=== PATIENT | male | born 1960 | race Caucasian/White ===

== ENCOUNTER 2018-11-08 20:23 | Emergency (ER) | payer OTHER ==
[2018-11-08 20:36] VITALS: TEMP 99.6; BMI 28.8
--- NOTE | 2018-11-08 21:10 | PDOC ---
History of Present Illness - General Chief Complaint: Back Pain Stated Complaint: BACK PAIN Time Seen by Provider: 11/08/18 21:09 Past History - Past Medical History Allergies/Adverse Reactions: Allergies Allergy/AdvReac Type Severity Reaction Status Date / Time acetaminophen [From Percocet] Allergy Mild Unverified 11/08/18 22:23 oxycodone [From Percocet] Allergy Mild Unverified 11/08/18 22:23 Home Medications: Ambulatory Orders Gabapentin 2 cap PO TID 11/08/18 HYDROmorphone [Dilaudid -] 4 mg PO Q4H PRN 11/08/18 Metoclopramide HCl 5 mg PO TID 11/08/18 Tizanidine HCl 2 mg PO Q6H PRN 11/08/18 - Psycho Social/Smoking Cessation Hx Smoking Status: Yes Smoking History: Never smoked Have you smoked in the past 12 months: No Number of Cigarettes Smoked Daily: 20 Information on smoking cessation initiated: No 'Breaking Loose' booklet given: 05/07/13 Hx Alcohol Use: No Drug/Substance Use Hx: No *Physical Exam - Vital Signs Last Vital Signs Temp Pulse Resp BP Pulse Ox 99.6 F 105 H 20 164/91 99 11/08/18 20:34 11/08/18 20:34 11/08/18 20:34 11/08/18 20:34 11/08/18 20:34 ED Treatment Course - LABORATORY CBC & Chemistry Diagram: 11/08/18 22:00 11/08/18 22:00 Medical Decision Making - Medical Decision Making HPI: 58yo M with PMH of c-spine surgery presenting with neck pain. Patient states he had surgery on 09/06/18 following trauma sustained in May with residual weakness and lessened sensation on the left. He followed up with his surgeon about one and a half months ago. Patient states he attended physical therapy in the morning between 8am and 10pm. Starting in the afternoon, he started feeling worsening pain "inside" in his neck and chest and feels the area is "swelling". [place] nauseous, but not currently. He took two tablets of gabapentin without relief of pain. Denies trauma or fall today. No fevers or chills. History obtained with assistance from [employer] metal moulder's assistant #[id number] Surgeon: Dr. Car Manrique ROS: Constitutional: no fever, no chills HEENT: no throat pain, no dysphagia Cardiovascular: no chest pain, no palpitations Respiratory: no cough, no shortness of breath Gastrointestinal: no abdominal pain, +nausea Genitourinary: no dysuria, no hematuria Musculoskeletal: +neck pain, +back pain Skin: no rash, no itching Neurologic: no headache, no weakness PE: General: Awake, alert, and fully oriented, writhing in pain Head: No signs of trauma Eyes: EOMI, sclera anicteric ENT: Moist mucus membranes Neck: Normal ROM, supple, well-healing surgical scars present Lungs: Lungs clear, Normal breath sounds Cardio: Regular rhythm, S1 and S2 present Abdomen: Soft, nontender, nondistended Extremities: Normal range of motion, Distal pulses present SKIN: Warm, Dry, normal turgor Neurologic: Cranial nerves II through XII intact. Normal speech. Moving all extremities. Lessened sensation and strength on LUE when compared to RUE. ED Course/MDM: DDX including but not limited to c-spine fracture, post-op infection, hardware failure, aortic dissection, ACS, PE, PNA Labs, EKG, CXR Morphine Zofran 11/08/18 21:10 Call to Surgeon Car Manrique, 11/08/18 22:[address] Manrique who recommends plain films and analgesia. Patient can follow up at his next regularly scheduled appointment. 11/08/18 22:39 CBC WBC 7.9 K/mm3 (4.0-10.0) 11/08/18 22:00 RBC 4.50 M/mm3 (4.00-5.60) 11/08/18 22:00 Hgb 15.2 GM/dL (11.7-16.9) 11/08/18 22:00 Hct 42.8 % (35.4-49) 11/08/18 22:00 MCV 95.1 fl (80-96) 11/08/18 22:00 MCH 33.7 pg (25.7-33.7) 11/08/18 22:00 MCHC 35.4 g/dl (32.0-35.9) 11/08/18 22:00 RDW 13.8 % (11.9-15.9) 11/08/18 22:00 Plt Count 214 K/MM3 (134-434) 11/08/18 22:00 MPV 8.5 fl (7.5-11.1) 11/08/18 22:00 Absolute Neuts (auto) 4.8 K/mm3 (1.5-8.0) 11/08/18 22:00 Neutrophils % 60.8 % (42.8-82.8) 11/08/18 22:00 Lymphocytes % 26.8 % (8-40) 11/08/18 22:00 Monocytes % 8.3 % (3.8-10.2) 11/08/18 22:00 Eosinophils % 3.4 % (0-4.5) 11/08/18 22:00 Basophils % 0.7 % (0-2.0) 11/08/18 22:00 Nucleated RBC % 0 % (0-0) 11/08/18 22:00 No leukocytosis CMP Sodium 138 mmol/L (136-145) 11/08/18 22:00 Potassium 3.9 mmol/L (3.5-5.1) 11/08/18 22:00 Chloride 106 mmol/L (98-107) 11/08/18 22:00 Carbon Dioxide 25 mmol/L (21-32) 11/08/18 22:00 Anion Gap 7 MMOL/L (8-16) L 11/08/18 22:00 BUN 8.3 mg/dL (7-18) 11/08/18 22:00 Creatinine 0.9 mg/dL (0.55-1.3) 11/08/18 22:00 Est GFR (CKD-EPI)AfAm 109.50 11/08/18 22:00 Est GFR (CKD-EPI)NonAf 94.48 11/08/18 22:00 Random Glucose 110 mg/dL (74-106) H 11/08/18 22:00 Calcium 9.6 mg/dL (8.5-10.1) 11/08/18 22:00 Total Bilirubin 0.4 mg/dL (0.2-1) 11/08/18 22:00 AST 15 U/L (15-37) 11/08/18 22:00 ALT 27 U/L (13-61) 11/08/18 22:00 Alkaline Phosphatase 73 U/L (45-117) 11/08/18 22:00 Creatine Kinase 79 U/L (26-308) 11/08/18 22:00 Troponin I < 0.02 ng/ml (0.00-0.05) 11/08/18 22:00 Total Protein 7.0 g/dl (6.4-8.2) 11/08/18 22:00 Albumin 4.2 g/dl (3.4-5.0) 11/08/18 22:00 Electrolytes unremarkable Normal Cr Tpn undetectable Xray: "Patient is status post posterior fusion of C3-C7 in satisfactory alignment. There is straightening of the cervical spine. Mild anterior spondylosis mainly at C5-C6 level. There is prevertebral soft tissue swelling at C5 down to C7 level that may be due to recent surgery. Otherwise, further evaluation is needed. Impression: Status post posterior fusion, as described above. Prevertebral soft tissue swelling from C5 through C7 level " Patient reports his pain is lessened. Radiology reports that c spine is in alignment. Hardwear appears intact. Patient will follow up with his neurosurgeon at his already scheduled appointment. He already has pain medication and muscle relaxant (hydromorphone and tizanadine) prescription with sufficient number of pills at the bedside. Discharged with return precautions. Discharge - Discharge Information Problems reviewed: Yes Clinical Impression/Diagnosis: Other acute postoperative pain, Neck pain Condition: Stable Disposition: HOME - Additional Discharge Information Goals: improved Pain management Plan of Treatment: Pt should be taking his home medications - Follow up/Referral Referrals: Min Best MD [Primary Care Provider] - - Patient Discharge Instructions Patient Printed Discharge Instructions: DI for Neck Pain Additional Instructions: Mr. Mildred Watersta Per por venir a la summer de emergencias hoy [place] baldev analgsicos para el dolor. En deleon bolsa de medicamentos, tiene Dilaudid (para dolor intenso) y Tizanidina ( para espasmos musculares) Christine las etiquetas sobre human resources hr representative valdez estos medicamentos. Dleeon mdico casa que estaba en la summer de emergencias. Lo llamamos para informarle los resultados de deleon radiografa. Debe asegurarse de hacer un seguimiento con l: llame a la oficina el lunes para programar daren christel de seguimiento. Regrese a la summer de emergencias por dolor intenso, debilidad, entumecimiento, cualquier otra inquietud o queja Tambin asegrese de hacer un seguimiento con deleon mdico de atencin primaria. Entiendo que craft tenido menos horas de asistencia mdica a domicilio [place] debe abordarlo deleon mdico de atencin primaria Thank you for coming in to the ER today Please take your pain medications for pain In you medication bag, you have Dilaudid (for severe pain) and Tizanidine (for muscle spasms) Please review the labels as to how to take these medications Your doctor knew you were in the ER We called to let him know the results of your x ray You should be sure to follow up with him - call the office on Sunday for a follow up appointment Please return to the ER for severe pain, weakness, numbness, any other concerns or complaints Please also make sure your follow up with your primary care physician I understand that you have had fewer home health aid hours This should be addressed by your Primary care physician Print Language: BENGALI - Post Discharge Activity
[2018-11-08] MEDS ORDERED: morphine CARPU-JECT 4 MG/1 ML DISP.SYRIN IVPUSH ONE (21:35)
[2018-11-08] MEDS ORDERED: ONDANSETRON 4 MG/2 ML VIAL IVPUSH ONE (21:35)
--- NOTE | 2018-11-08 21:49 | PDOC ---
Attending Attestation - Resident Resident Name: LouisaKaty - ED Attending Attestation I have performed the following: I have examined & evaluated the patient, The case was reviewed & discussed with the resident, I agree w/resident's findings & plan, Exceptions are as noted - HPI HPI: 11/08/18 22:49 Mr. Mildred Floyd is a 58 yo M h/o C spine surgery August 2018 Pt states that he was at home, doing physical therapy (upper extremity pulling and pushing) The patient states that he noted severe neck pain He denies traumatic injury - falls, direct trauma No fevers or chills - Physicial Exam PE: 11/08/18 22:57 GENERAL: The patient is in severe pain ENT: Ears normal, nares patent, oropharynx clear without exudates. Moist mucous membranes. NECK: Pt removed neck collar, limited range of motion LUNGS: Breath sounds equal, clear to auscultation bilaterally. No wheezes, and no crackles. HEART:Regular rate and rhythm, normal S1 and S2 without murmur, rub or gallop. ABDOMEN: Soft, nontender, normoactive bowel sounds. EXTREMITIES: Normal range of motion, no edema. NEUROLOGICAL: Left upper and lower extremity decreased sensation SKIN: Midline surgical scar well healed, no surrounding erythema - Medical Decision Making 11/08/18 22:59 58 yo M almost 2.5 months s/p C spine surgery Pt presenting with severe pain Pt did not try taking either the Dilaudid or the Tinazidine in his medication bag He is at his neurological baseline Call placed to Dr. hurtado (pt surgeon) He states he does not think there is a surgical issue Recommends Xray (as opposed to CT) Recommends pain medications Re Assess ekg: Twelve-lead EKG was performed and reviewed by me. There is normal sinus rhythm with a normal rate. The axis is normal. The intervals are normal. There are no ST or T wave abnormalities. Impression: Normal twelve-lead EKG 11/09/18 01:49 Xray reveals posterior fusion Prevertebral soft tissue swelling C5-C7 Pt states that he feels better but continues to have pain 11/09/18 01:50 Laboratory Tests 11/08/18 11/08/18 11/08/18 22:00 22:00 22:00 Hgb 15.2 Hct 42.8 INR BUN 8.3 Creatinine 0.9 Creatine Kinase 79 Troponin I < 0.02 11/08/18 22:00 Hgb Hct INR 0.97 BUN Creatinine Creatine Kinase Troponin I 11/09/18 02:[address] hurtado Awaiting response Will plan to discharge as we have no heard back from Dr Hurtado Pt asked to call his office and follow up with him Clinical impression: neck pain, initial presentation Discharge - Discharge Information Problems reviewed: Yes Clinical Impression/Diagnosis: Other acute postoperative pain, Neck pain Condition: Stable Disposition: HOME - Admission No - Additional Discharge Information Goals: improved Pain management Plan of Treatment: Pt should be taking his home medications Prescription Drug Monitoring Program (I-STOP) results: I-STOP not reviewed - Follow up/Referral Referrals: Min Best MD [Primary Care Provider] - - Patient Discharge Instructions Patient Printed Discharge Instructions: DI for Neck Pain Additional Instructions: Mr. Mildred Watersta Per por venir a la summer de emergencias hoy [place] baldev analgsicos para el dolor. En deleon bolsa de medicamentos, tiene Dilaudid (para dolor intenso) y Tizanidina ( para espasmos musculares) Christine las etiquetas sobre motion picture operator valdez estos medicamentos. Deleon mdico casa que estaba en la summer de emergencias. Lo llamamos para informarle los resultados de deleon radiografa. Debe asegurarse de hacer un seguimiento con l: llame a la oficina el [facility] para programar daren christel de seguimiento. Regrese a la summer de emergencias por dolor intenso, debilidad, entumecimiento, cualquier otra inquietud o queja Tambin asegrese de hacer un seguimiento con deleon mdico de atencin primaria. Entiendo que craft tenido menos horas de asistencia mdica a domicilio [place] debe abordarlo deleon mdico de atencin primaria Thank you for coming in to the ER today Please take your pain medications for pain In you medication bag, you have Dilaudid (for severe pain) and Tizanidine (for muscle spasms) Please review the labels as to how to take these medications Your doctor knew you were in the ER We called to let him know the results of your x ray You should be sure to follow up with him - call the office on Sunday for a follow up appointment Please return to the ER for severe pain, weakness, numbness, any other concerns or complaints Please also make sure your follow up with your primary care physician I understand that you have had fewer home health aid hours This should be addressed by your Primary care physician Print Language: KOREAN - Post Discharge Activity
[2018-11-08] MEDS ORDERED: morphine SULFATE 4 MG/ML VIAL ONE (22:13)
[2018-11-08] MEDS ORDERED: ONDANSETRON 4 MG/2 ML VIAL ONE (22:13)
[2018-11-08 22:14] LABS: BASO % 0.7 % (0-2.0); EOS % 3.4 % (0-4.5); HEMATOCRIT 42.8 % (35.4-49); HEMOGLOBIN 15.2 GM/dL (11.7-16.9); LYMPH % 26.8 % (8-40); MCH 33.7 pg (25.7-33.7); MCHC 35.4 g/dl (32.0-35.9); MEAN CELL VOLUME 95.1 fl (80-96); MEAN PLT VOLUME 8.5 fl (7.5-11.1); MONO % 8.3 % (3.8-10.2); NEUT % 60.8 % (42.8-82.8); PLATELET COUNT 214 K/MM3 (134-434); RDW 13.8 % (11.9-15.9); WHITE BLOOD COUNT 7.9 K/mm3 (4.0-10.0)
[2018-11-08 22:41] LABS: INR 0.97 (0.83-1.09); PROTHROMBIN TIME (PATIENT) 11.5 SEC (9.7-13.0)
[2018-11-08 22:42] LABS: ALBUMIN 4.2 g/dl (3.4-5.0); BILIRUBIN,TOTAL 0.4 mg/dL (0.2-1); BLOOD UREA NITROGEN 8.3 mg/dL (7-18); CALCIUM 9.6 mg/dL (8.5-10.1); CREATININE 0.9 mg/dL (0.55-1.3); POTASSIUM 3.9 mmol/L (3.5-5.1)
[2018-11-09 02:42] VITALS: BP 142/79; PULSE 90
--- NOTE | 2018-11-10 16:55 | EKG ---
Test Reason : Blood Pressure : / mmHG Vent. Rate : 087 BPM Atrial Rate : 087 BPM P-R Int : 150 ms QRS Dur : 076 ms QT Int : 352 ms P-R-T Axes : 014 011 035 degrees QTc Int : 423 ms NORMAL SINUS RHYTHM NORMAL ECG WHEN COMPARED WITH ECG OF 07-MAY-2013 09:17, NO SIGNIFICANT CHANGE WAS FOUND Confirmed by YOHAN MURRY MD ([id number]) on 11/10/2018 4:55:07 PM Referred By: Confirmed By:YOHAN MURRY MD
== END 2018-11-09 02:52 | disposition home or self-care (01) ==
LOC: JER 20:23
PROC: 3E033NZ Introduction of Analgesics, Hypnotics, Sedatives into Peripheral Vein, Percutaneous Approach (ICD-10-PCS; principal; 2018-11-08)
PROC: 3E033GC Introduction of Other Therapeutic Substance into Peripheral Vein, Percutaneous Approach (ICD-10-PCS; 2018-11-08)
DX: M54.2 Cervicalgia (principal); G89.18 Other acute postprocedural pain; F17.210 Nicotine dependence, cigarettes, uncomplicated; Z88.6 Allergy status to analgesic agent; Z88.8 Allergy status to other drugs, medicaments and biological substances
CPT/HCPCS: 36415; 72040-TC; 80053; 82550; 84484; 85025; 85610; 85730; 93005; 93010; 96374; 96375; 99283-25

== ENCOUNTER 2022-04-20 12:42 | Emergency (ER) | payer OTHER ==
[2022-04-20 13:46] VITALS: RESP 18; TEMP 99; BMI 29.8
[2022-04-20] MEDS ORDERED: morphine SULFATE 4 MG/ML VIAL IVPUSH ONE (15:03)
[2022-04-20] MEDS ORDERED: ONDANSETRON 4 MG/2 ML VIAL IVPUSH PRN (15:03)
[2022-04-20] MEDS ORDERED: morphine SULFATE 4 MG/ML VIAL ONE (15:11)
[2022-04-20] MEDS ORDERED: ONDANSETRON 4 MG/2 ML VIAL ONE (15:11)
[2022-04-20 20:02] VITALS: BP 130/80; PULSE 90
== END 2022-04-20 20:02 | disposition home or self-care (01) ==
LOC: JER 12:42
PROC: 3E033GC Introduction of Other Therapeutic Substance into Peripheral Vein, Percutaneous Approach (ICD-10-PCS; principal; 2022-04-20)
PROC: 3E033GC Introduction of Other Therapeutic Substance into Peripheral Vein, Percutaneous Approach (ICD-10-PCS; 2022-04-20)
DX: M54.2 Cervicalgia (principal); M99.01 Segmental and somatic dysfunction of cervical region
CPT/HCPCS: 70450-TC; 72125-TC; 72128-TC; 72131-TC; 99284-25